=== PATIENT | female | born 2005 | race Two or more races ===

== ENCOUNTER 2023-01-10 17:58 | Inpatient (IN) | payer MEDICAID ==
[~2023-01-10] VITALS: Ht 167.6 cm; Wt 53.7 kg
[2023-01-10] MEDS ORDERED: HALOPERIDOL 5 MG TABLET PO PRN (19:15)
[2023-01-10] MEDS ORDERED: ZOLPIDEM TARTRATE 10 MG TABLET PO PRN (19:15)
[2023-01-10] MEDS ORDERED: LORazepam 2 MG TABLET PO PRN (19:15)
[2023-01-10] MEDS ORDERED: INFLUENZA VIRUS VACCINE QVS 2023-24 (6MO+)/PF 60 MCG/0.5 ML SYRINGE IM. ONE (21:15)
[2023-01-10 22:08] VITALS: BP 130/80; PULSE 77; RESP 18; TEMP 97.7; O2SAT 98
[2023-01-11 08:34] VITALS: RESP 16
[2023-01-11] MEDS ORDERED: ONDANSETRON HCL 4 MG TABLET PO PRN (13:15)
[2023-01-11] MEDS ORDERED: DOCUSATE SODIUM 100 MG CAPSULE PO PRN (13:15)
[2023-01-11] MEDS ORDERED: LOPERAMIDE HCL 2 MG CAPSULE PO PRN (13:15)
[2023-01-11] MEDS ORDERED: MAG HYDROX/ALUMINUM HYD/SIMETH ES 30 ML SUSPENSION UDCUP PO PRN (13:15)
[2023-01-11] MEDS ORDERED: NICOTINE 14 MG/24 HOUR PATCH TD PRN (13:15)
[2023-01-11] MEDS ORDERED: MAGNESIUM HYDROXIDE SUSPENSION 30 ML UDCUP PO PRN (13:15)
[2023-01-11] MEDS ORDERED: IBUPROFEN 400 MG TABLET PO PRN (13:15)
[2023-01-11] MEDS ORDERED: GuaiFENesin/D-METHORPHAN [SUGAR-FREE] 200-20MG/10 ML SYRUP UDCUP PO PRN (13:15)
[2023-01-11] MEDS ORDERED: PETROLATUM,WHITE 28 GM JELLY TP PRN (13:15)
[2023-01-11] MEDS ORDERED: ACETAMINOPHEN 325 MG TABLET PO PRN (13:15)
[2023-01-11] MEDS ORDERED: CloNIDine HCL 0.1 MG TABLET PO PRN (13:15)
[2023-01-11] MEDS ORDERED: ALBUTEROL SULFATE HFA 90 MCG/PUFF 8 GM INHALER IH PRN (13:15)
[2023-01-11 20:03] VITALS: RESP 16
[2023-01-12 10:15] VITALS: BP 109/68; PULSE 83; RESP 18; TEMP 98.2; O2SAT 97
[2023-01-12] MEDS: FLUoxetine HCL 10 MG CAPSULE PO SCH (11:45)
[2023-01-12 20:53] VITALS: BP 111/77; PULSE 87; RESP 16; TEMP 97.6; O2SAT 97
[2023-01-13] MEDS: FLUoxetine HCL 10 MG CAPSULE PO SCH (08:38)
[2023-01-13 08:39] VITALS: RESP 16
== END 2023-01-13 13:48 | disposition left against medical advice (07) | DRG 751 ==
LOC: B3A 20:22
PROVIDERS: ADMIT Psychiatry & Neurology Child & Adolescent Psychiatry; ATTEND Psychiatry & Neurology Child & Adolescent Psychiatry
DX: F33.2 Major depressive disorder, recurrent severe without psychotic features (principal); F41.9 Anxiety disorder, unspecified; G47.00 Insomnia, unspecified
CPT/HCPCS: Z7610